=== PATIENT | male | born 1970 | race Caucasian/White ===

== ENCOUNTER 2017-12-03 06:40 | Emergency (ER) | payer OTHER ==
[2017-12-03 06:59] VITALS: TEMP 98.7; BMI 36.2
--- NOTE | 2017-12-03 07:05 | PDOC ---
History of Present Illness - General Chief Complaint: Laceration Stated Complaint: HEAD LAC Time Seen by Provider: 12/03/17 07:00 History Source: Patient Exam Limitations: No Limitations - History of Present Illness Initial Comments: 12/03/17 07:02 46 y/o male slipped on ice at work today and hit the back of his head. Denies LOC but is nauseous. No vomiting. No headache or pain. No neck pain or weakness or blurred vision. Denies any other injury during the slip on the ice. Timing/Duration: 1 hour Severity: mild Past History - Past Medical History COPD: No - Immunization History Immunization Up to Date: No - Suicide/Smoking/Psychosocial Hx Smoking History: Never smoked Review of Systems - Review of Systems Able to Perform ROS?: Yes Is the patient limited [place] proficient: No Constitutional: No: Chills, Fever HEENTM: No: Eye Pain Respiratory: No: Cough, Shortness of Breath Cardiac (ROS): No: Chest Pain Musculoskeletal: No: Back Pain Integumentary: No: Bruising All Other Systems: Reviewed and Negative *Physical Exam - Vital Signs Last Vital Signs Temp Pulse Resp BP Pulse Ox 98.7 F 104 H 18 147/102 98 12/03/17 06:55 12/03/17 06:55 12/03/17 06:55 12/03/17 06:55 12/03/17 06:55 - Physical Exam General Appearance: Yes: Nourished, Appropriately Dressed. No: Apparent Distress HEENT: positive: EOMI, YANET, Normal ENT Inspection Neck: positive: Trachea midline, Normal Thyroid, Supple (no spinous process tenderness, full ROM). negative: Tender, Rigid Respiratory/Chest: positive: Lungs Clear, Normal Breath Sounds. negative: Chest Tender, Respiratory Distress Cardiovascular: positive: Regular Rhythm, Regular Rate, S1, S2. negative: Edema , JVD, Murmur Vascular Pulses: Femoral (R): 4+, Femoral (L): 4+, Carotid (R): 4+, Carotid (L) : 4+, Dorsalis-Pedis (R): 4+, Doralis-Pedis (L): 4+ Gastrointestinal/Abdominal: positive: Normal Bowel Sounds, Flat, Soft. negative : Tender, Organomegaly, Pulsatile Mass Lymphatic: negative: Adenopathy, Tenderness, Other Musculoskeletal: positive: Normal Inspection. 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, Fully Oriented, Alert, Normal Mood/ Affect (strength 5+/5 b/l in UE and LE, no focal deficits noted), Normal Response, Motor Strength 5/5 Procedures - Laceration/Wound Repair Posterior Head Wound Length: 5.0 to 7.5 cm Wound Explored: clean, no foreign body present Wound's Depth, Shape: irregular (s-shaped laceration into SQ area) Irrigated w/ Saline: Yes Wound Repaired With: Marcello (7 marcello placed) Progress: 12/03/17 07:18 Pt tolerated procedure well ED Treatment Course - ADDITIONAL ORDERS Additional order review: 12/03/17 07:05 Head injury, laceration will obtain CT head 12/03/17 08:44 Pt is doing well feels fine. Pt suffers from migraines, never had a CT before. CT head Large cystic structure, no bleed 12/03/17 08:44 Discussed findings with patient. Will need non emergent MRI as out patient. Pt is in agreement with plan, if worsen will need to return to ER *DC/Admit/Observation/Transfer Diagnosis at time of Disposition: Laceration of head Qualifiers: Encounter type: initial encounter Location of open wound of head: scalp Foreign body presence: without foreign body Qualified Code(s): S01.01XA - Laceration without foreign body of scalp, initial encounter Head injury Qualifiers: Encounter type: initial encounter Qualified Code(s): S09.90XA - Unspecified injury of head, initial encounter - Discharge Dispostion Disposition: HOME Condition at time of disposition: Good Admit: No - Referrals - Patient Instructions Printed Discharge Instructions: DI for Laceration Repair, DI for Closed Head Injury Additional Instructions: Follow up with PMD for MRI head ICe, Tylenol, rest Head injury handout If worsen return to ER Remove marcello in 7-10 days - Post Discharge Activity
[2017-12-03 09:08] VITALS: BP 132/90; PULSE 88
== END 2017-12-03 08:55 | disposition home or self-care (01) ==
LOC: FER 06:40
PROC: 0HQ0XZZ Repair Scalp Skin, External Approach (ICD-10-PCS; principal; 2017-12-03)
DX: S01.01XA Laceration without foreign body of scalp, initial encounter (principal); S09.90XA Unspecified injury of head, initial encounter; W00.0XXA Fall on same level due to ice and snow, initial encounter; Y93.89 Activity, other specified; Y92.410 Unspecified street and highway as the place of occurrence of the external cause; Y99.0 Civilian activity done for income or pay
CPT/HCPCS: 70450-TC; 99281-25

== ENCOUNTER 2017-12-09 17:18 | Emergency (ER) | payer OTHER ==
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
[2017-12-09 17:39] VITALS: BP 141/91; PULSE 110; TEMP 97.6; BMI 39.0
== END 2017-12-09 17:45 | disposition home or self-care (01) ==
LOC: FER 17:18
DX: S80.01XA Contusion of right knee, initial encounter (principal); S97.81XA Crushing injury of right foot, initial encounter; V03.90XA Pedestrian on foot injured in collision with car, pick-up truck or van, unspecified whether traffic or nontraffic accident, initial encounter; Y93.89 Activity, other specified; Y92.410 Unspecified street and highway as the place of occurrence of the external cause
CPT/HCPCS: 99282-25